=== PATIENT | male | born 1985 | race Hispanic/Latino ===

== ENCOUNTER 2024-03-21 06:25 | Day surgery (SDC) | payer OTHER ==
[2024-03-21] VITALS (10 sets, daily range): BP systolic 112–132; BP diastolic 72–85; PULSE 61–84; RESP 12–18
[~2024-03-21] VITALS: Ht 175.3 cm; Wt 88.5 kg
[~2024-03-21 06:25] MED LIST: CETI10TA87 PO; ESCI20TA38 PO; FAMO20TA8 PO; FENO48TA10 PO; LOSA25TA41 PO; MULT-1203 PO; OMEG-53 PO; PRAZ2CAP2 PO; ROSU20TA73 PO; TRAZ-185 PO
[2024-03-21] MEDS: 0.9%NACL 1000ML 1,000 ML IV ONE (07:46)
[2024-03-21] MEDS ORDERED: PROPOFOL 10 MG/ML 20ML VIAL IV ONE (09:34)
== END 2024-03-21 11:00 | disposition home or self-care (01) ==
LOC: DAH 06:25 → ENDO 06:25
PROVIDERS: ATTEND Internal Medicine Gastroenterology
DX: R10.31 Right lower quadrant pain (principal); K31.89 Other diseases of stomach and duodenum; R94.5 Abnormal results of liver function studies; K76.0 Fatty (change of) liver, not elsewhere classified; I10 Essential (primary) hypertension; E78.9 Disorder of lipoprotein metabolism, unspecified; F41.9 Anxiety disorder, unspecified; F32.A Depression, unspecified; E78.00 Pure hypercholesterolemia, unspecified; Z83.3 Family history of diabetes mellitus; Z82.49 Family history of ischemic heart disease and other diseases of the circulatory system; Z72.89 Other problems related to lifestyle; Z87.891 Personal history of nicotine dependence; Z79.1 Long term (current) use of non-steroidal anti-inflammatories (NSAID); Z79.899 Other long term (current) drug therapy
CPT/HCPCS: 43238; J7030; J2704; A4620; A4215 ×3; A4223; A4222; A4221; A4663; A4606; J3490